=== PATIENT | female | born 1960 | race African-American/Black ===

== ENCOUNTER 2018-04-16 16:16 | Outpatient (CLI) | payer OTHER ==
[2017-10-07 09:52] VITALS: BMI 33.0
--- NOTE | 2018-04-17 07:57 | DI ---
EXAM: Chest one view, frontal view only. HISTORY: Cough. COMPARISON: 12/19/2014. FINDINGS: Heart size is normal. No vascular congestion identified. Calcified granulomatous changes present. There is haziness over the left lung base. The lungs otherwise clear without pleural effu maximiliano or pneumothorax. Cholecystectomy clips are present. Chronic shoulder deformities noted bilater ally, which appear stable. IMPRESSION: Suspect left basilar pneumonia.
== END 2018-04-16 16:17 | disposition home or self-care (01) ==
LOC: RAD 16:16
PROVIDERS: ATTEND Physician Assistant
DX: R05 Cough (principal)

== ENCOUNTER 2018-04-23 13:47 | Outpatient (CLI) | payer OTHER ==
[2017-10-07 09:52] VITALS: BMI 33.0
== END 2018-04-23 13:48 | disposition home or self-care (01) ==
LOC: RAD 13:47
PROVIDERS: ATTEND Family Medicine
DX: Z12.31 Encounter for screening mammogram for malignant neoplasm of breast (principal)

== ENCOUNTER 2018-06-04 14:56 | Emergency (ER) | payer OTHER ==
[2018-06-04 15:22] VITALS: BP 133/72; TEMP 98.3; BMI 35.0
--- NOTE | 2018-06-04 17:27 | ED.PDOC ---
General ED Provider: Dr. DAVID MOELLER Chief Complaint: Face Laceration Stated Complaint: Forhead laceration. Fell forward on wheelchair sustaining superfical linear laceration. Minimal bleedging. Time Seen by Physician: 16:40 Mode of Arrival: Walk-In Information Source: Patient Exam Limitations: No limitations Primary Care Provider: FRANKLIN RYDER Referred to ED by: Other (home facility) Nursing and Triage Documentation Reviewed and Agree: Yes Does patient meet sepsis criteria?: No System Inflammatory Response Syndrome: Not Applicable Sepsis Protocol: For patient's 13 years and over: Temp is 96.8 and below OR 101 and greater Pulse >90 BPM Resp >20/minute Acutely Altered Mental Status Are patient's symptoms suggestive of a new infection, such as: -Pneumonia -Skin, Soft Tissue -Endocarditis -UTI -Bone, Joint Infection -Implantable Device -Acute Abdominal Infection -Wound Infection -Meningitis -Blood Stream Catheter Infection -Unknown Skin Complaint Exam - Laceration/Abrasion/Hand Complaint/Exam Mechanism of Injury: Laceration (forehead-lt of midline extending to nasal bridge) Symptoms Are: Still present Differential Diagnoses: Laceration, Other (forehead contusion ) Review of Systems - Review Of Systems Constitutional: Reports: No symptoms Eyes: Reports: No symptoms Ears, Nose, Mouth, Throat: Reports: No symptoms Respiratory: Reports: No symptoms Cardiac: Reports: No symptoms GI: Reports: No symptoms : Reports: No symptoms Musculoskeletal: Reports: No symptoms Skin: Reports: No symptoms Neurological: Reports: No symptoms Endocrine: Reports: No symptoms Hematologic/Lymphatic: Reports: No symptoms All Other Systems: Reviewed and Negative Past Medical History - Past Medical History Previously Healthy: Yes Endocrine: Reports: None, Unknown Cardiovascular: Reports: None, Unknown Respiratory: Reports: None, Unknown, Other Hematological: Reports: None, Unknown Gastrointestinal: Reports: None, Unknown Genitourinary: Reports: None Neuro/Psych: Reports: None, Other (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) Musculoskeletal: Reports: None Cancer: Reports: None Last Menstrual Period: unknown - Surgical History General Surgical History: Reports: None - Family History Family History: Reports: None - Social History Smoking Status: Never smoker Hx Substance Use: No Alcohol Screening: None - Immunizations Tetanus Shot up to Date: Yes Physical Exam - Physical Exam Appearance: Well-appearing, Obese Ill-appearing: None Pain Distress: None Eyes: JAILENE, EOMI, Conjunctiva clear, Conjunctiva inflammed ENT: Ears normal, Nose normal (superficial laceratio from forehead to nasal bridge), Oropharynx normal Neck: Supple Respiratory: Airway patent, Breath sounds clear Cardiovascular: RRR, Pulses normal GI/: Soft, Nontender, No masses, Bowel sounds normal Musculoskeletal: Normal strength Skin: Warm, Dry Neurological: Sensation intact, Motor intact Procedures - Laceration/Wound Repair forhead Wound Description: Linear Wound Length (cm): .3 Wound Width: .2 Wound Depth: .1 Wound Explored: Clean Wound Irrigated: Yes Wound Prep: Saline, Betadine Wound Repaired With: Steri-strips, Dermabond Layer Closure?: No Sterile Dressing Applied?: Yes Critical Care Note - Critical Care Note Total Time (mins): 0 Course - Course Orders, Labs, Meds: Orders Category Date Time Status CT MAXILLOFACIAL W/O CONTRAST Stat RADS 06/04/18 17:32 Ordered FACIAL BONES MIN 3 VIEWS Stat RADS 06/04/18 17:29 Ordered Vital Signs: Temp Pulse Resp BP Pulse Ox 06/04/18 15:01 98.3 F 74 20 133/72 98 Departure - Departure Time of Disposition: 18:05 Disposition: HOME SELF-CARE Discharge Problem: Laceration of forehead without complication, Contusion of face Instructions: Steristrips (ED), Laceration (ED), Facial Contusion (ED) Condition: Good Pt referred to PMD for follow-up: Yes (1 week) IPMP verified?: No Allergies/Adverse Reactions: Allergies No Known Allergies Allergy (Verified 10/07/17 09:52) Home Medications: Ambulatory Orders Acetaminophen [Tylenol] 650 mg PO Q4H PRN 12/19/14 Bisacodyl [Dulcolax] 10 mg PO DAILY PRN 12/19/14 Docusate Sodium [Colace] 100 mg PO BID 12/19/14 Loratadine [Claritin] 10 mg PO DAILY 12/19/14 Lorazepam [Ativan] 1 mg PO DAILY 12/19/14 Potassium Chloride [Klor-Con] 40 meq PO DAILY 12/19/14 Propranolol HCl [Inderal] 20 mg PO TID 12/19/14 Triamterene/Hydrochlorothiazid [Maxzide 37.5 mg-25 mg Tablet] 1 each PO DAILY
--- NOTE | 2018-06-04 18:33 | CT ---
EXAM: CT FACIAL BONES HISTORY: Fall, central forehead laceration. TECHNIQUE: CT facial bones without contrast. 3-mm axial sections. Coronal and sagital reformations . FINDINGS: Exam is limited by motion as the patient was apparently unable to fully cooperate with the exam. There is a small amount of gas in the mid forehead peripheral soft tissues consistent with th e patient's history of regional laceration. No radiopaque foreign bodies are identified. There is n o underlying fracture. Orbits are grossly intact as is the mandible. Intraorbital structures are pre served. Clear paranasal sinuses and mastoid processes. IMPRESSION: Forehead laceration with no fracture identified. Limited exam.
== END 2018-06-04 18:15 | disposition home or self-care (01) ==
LOC: ED 14:56
DX: S01.81XA Laceration without foreign body of other part of head, initial encounter (principal); S00.83XA Contusion of other part of head, initial encounter; W19.XXXA Unspecified fall, initial encounter; F79 Unspecified intellectual disabilities
CPT/HCPCS: 99284

== ENCOUNTER 2019-04-20 10:58 | Outpatient (CLI) ==
--- NOTE | 2019-04-21 09:53 | MAMMO ---
EXAM: Left digital screening mammogram (2-D and 3-D) History: Screening Comparison: Left-sided mammogram 04/23/2018 Findings: MLO and CC views of the left breast demonstrate scattered fibroglandular breast parenchyma . Tomosynthesis was performed. There are no dominant masses, no suspicious microcalcifications and no architectural distortions Impression: Benign stable mammogram. Recommend followup routine screening mammography in 1 year. BI-RADS 2, benign
== END 2019-04-20 10:59 | disposition home or self-care (01) ==
LOC: RAD 10:58
PROVIDERS: ATTEND Family Medicine
DX: Z12.31 Encounter for screening mammogram for malignant neoplasm of breast (principal)